=== PATIENT | female | born 2000 ===

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

== ENCOUNTER 2018-11-21 21:08 | Emergency (ER) | payer MEDICAID ==
[2018-11-21 21:09] VITALS: BMI 24.5
[2018-11-21 21:16] VITALS: O2SAT 100
[2018-11-21 23:11] LABS: SQUAMOUS EPITHIAL 7 /hpf (0-5); URINE BACTERIA RARE (<OCC)
[2018-11-21 23:14] LABS: URINE BILIRUBIN NEGATIVE (NEGATIVE); URINE BLOOD NEGATIVE (NEGATIVE); URINE CLARITY CLEAR (Clear); URINE COLOR YELLOW (YELLOW); URINE GLUCOSE (UA) NEGATIVE (Normal); URINE LEUKOCYTE ESTERASE NEGATIVE Leu/uL (Negative); URINE PROTEIN NEGATIVE (NEGATIVE); URINE UROBILINOGEN 0.2 mg/dL (0.2-1.0)
--- NOTE | 2018-11-21 23:19 | C.PDOC ---
History Of Present Illness 18 year old female, A1, 16 weeks presents to the ED c/o mild viral syndrome for the last week. Patient states she does not know what medications to take for her symptoms. Patient is not currently working or attending school. Patient also c/o digitally and positionally reproducible parasternal pain. Patient denies fever, chills, nausea, vomit, vaginal bleeding, injury, fall, trauma. Time Seen by Provider: 11/21/18 22:04 Chief Complaint (Nursing): Chest Pain History Per: Patient History/Exam Limitations: no limitations Onset/Duration Of Symptoms: Days Current Symptoms Are (Timing): Still Present Quality: "Pain" Exacerbating Factors: Movement Recent travel outside of the [place]: No Additional History Per: Patient Past Medical History Reviewed: Historical Data, Nursing Documentation, Vital Signs Vital Signs: Last Vital Signs Temp 98.4 F 11/21/18 21:12 Pulse 76 11/21/18 21:12 Resp 16 11/21/18 21:12 BP 106/75 11/21/18 21:12 Pulse Ox 100 11/21/18 21:12 - Medical History PMH: No Chronic Diseases Surgical History: No Surg Hx Family History: States: Unknown Family Hx - Social History Hx Alcohol Use: No Hx Substance Use: No - Immunization History Hx Tetanus Toxoid Vaccination: Yes Hx Influenza Vaccination: No Hx Pneumococcal Vaccination: No Review Of Systems Constitutional: Positive for: Malaise. Negative for: Fever, Chills ENT: Positive for: Nose Discharge, Nose Congestion Cardiovascular: Positive for: Chest Pain. Negative for: Palpitations Respiratory: Positive for: Cough. Negative for: Shortness of Breath Gastrointestinal: Negative for: Nausea, Vomiting, Abdominal Pain Genitourinary: Negative for: Vaginal Discharge, Vaginal Bleeding Skin: Negative for: Rash Neurological: Negative for: Weakness, Numbness Physical Exam - Physical Exam Appears: Non-toxic, No Acute Distress Skin: Normal Color, Warm, Dry Head: Atraumatic, Normacephalic Eye(s): bilateral: Normal Inspection Neck: Normal ROM, Supple Chest: Symmetrical, Tenderness (bilateral parasternal area) Cardiovascular: Rhythm Regular Respiratory: Normal Breath Sounds, No Rales, No Rhonchi, No Wheezing Gastrointestinal/Abdominal: Soft, No Tenderness, No Guarding, No Rebound, Other (gravid) Extremity: Normal ROM, No Tenderness, No Swelling Neurological/Psych: Oriented x3, Normal Speech, Normal Cognition Gait: Steady ED Course And Treatment - Laboratory Results Lab Results: Urine Color Yellow (YELLOW) 11/21/18 22:29 Urine Clarity Clear (Clear) 11/21/18 22: Urine pH 7.0 (5.0-8.0) 11/21/18 22:29 Ur Specific [place] 1.020 (1.003-1.030) 11/21/18 22: Urine Protein Negative mg/dL (NEGATIVE) 11/21/18 22: Urine Glucose (UA) Negative mg/dL (Normal) 11/21/18 22: Urine Ketones Trace mg/dL (NEGATIVE) 11/21/18 22: Urine Blood Negative (NEGATIVE) 11/21/18 22: Urine Nitrate Negative (NEGATIVE) 11/21/18 22: Urine Bilirubin Negative (NEGATIVE) 11/21/18 22: Urine Urobilinogen 0.2 mg/dL (0.2-1.0) 11/21/18 22:29 Ur Leukocyte Esterase Negative Luz/uL (Negative) 11/21/18 22:29 Urine WBC (Auto) 1 /hpf (0-5) 11/21/18 22:29 Urine RBC (Auto) 1 /hpf (0-3) 11/21/18 22:29 Ur Squamous Epith Cells 7 /hpf (0-5) H 11/21/18 22:29 Urine Bacteria Rare (<OCC) 11/21/18 22:29 Lab Interpretation: Normal (ua neg.) O2 Sat by Pulse Oximetry: 100 (ON RA) Pulse Ox Interpretation: Normal Medical Decision Making Medical Decision Making: Plan: * Tylenol 975 mg PO * UA mild viral syndrome for 1 week completely benign exam UA neg. NO susp of influenza digitally reproducable discomfort b/l parasternal c/w costochondritis normal EKG Educated to take Tylenol PRN Disposition Doctor Will See Patient In The: Office Counseled Patient/Family Regarding: Studies Performed, Diagnosis - Disposition Referrals: [facility] [Outside] [facility] [facility] [Outside] [facility] [Outside] [email or web address] [Outside] Disposition: HOME/ ROUTINE Disposition Time: 23:18 Condition: GOOD Additional Instructions: ekg and urinalysis normal Continue tylenol 1000 mg every 6 hours as needed Instructions: Costochondritis, Viral Syndrome (DC) Forms: [employer] (Turkmen) - Clinical Impression Clinical Impression: Viral syndrome, Chest wall discomfort - Scribe Statement The provider has reviewed the documentation as recorded by the Scribe Pk Broderick All medical record entries made by the Scribe were at my direction and personally dictated by me. I have reviewed the chart and agree that the record accurately reflects my personal performance of the history, physical exam, medical decision making, and the department course for this patient. I have also personally directed, reviewed, and agree with the discharge instructions and disposition.
[2018-11-21 23:29] VITALS: BP 100/66; PULSE 81; RESP 19; TEMP 98
== END 2018-11-21 23:31 | disposition home or self-care (01) ==
LOC: C.ER 21:08
DX: B34.9 Viral infection, unspecified (principal); R07.89 Other chest pain